=== PATIENT | female | born 1965 | race Hispanic/Latino ===

== ENCOUNTER 2021-12-04 20:56 | Emergency (ER) | payer BC ==
[~2021-12-04] VITALS: Ht 162.6 cm; Wt 62.1 kg
[2021-12-04] MEDS ORDERED: KETOROLAC TROMETHAMINE 30 MG/ML VIAL IV STA (21:35)
[2021-12-04] MEDS ORDERED: SODIUM CHLORIDE 0.9% 1000ML 1,000 ML IV SCH (21:45)
[2021-12-04] MEDS ORDERED: KETOROLAC TROMETHAMINE 30 MG/ML VIAL ONE (22:03)
[2021-12-04] MEDS ORDERED: SODIUM CHLORIDE 0.9% 1000ML 1,000 ML ONE (22:03)
[2021-12-04] MEDS ORDERED: KETOROLAC TROME10 MG PO (23:55)
[2021-12-04] MEDS ORDERED: FLOMAX0.4 MG PO (23:56)
[2021-12-04] MEDS ORDERED: CIPRO500 MG PO (23:58)
[2021-12-04] MEDS ORDERED: ULTRAM 50MG50 MG PO (23:59)
[2021-12-05 00:05] VITALS: BP 158/66
[2021-12-05] MEDS ORDERED: ONDANSETRON ODT4 MG PO (00:09)
== END 2021-12-05 00:05 | disposition home or self-care (01) ==
LOC: FSED 21:09
DX: M54.50 Low back pain, unspecified (principal); R10.9 Unspecified abdominal pain; K21.9 Gastro-esophageal reflux disease without esophagitis; N13.2 Hydronephrosis with renal and ureteral calculous obstruction
CPT/HCPCS: 74176; 80053; 81003; 85025; 99284; J1885; J7030